=== PATIENT | male | born 1945 | race Caucasian/White ===

== ENCOUNTER 2018-05-29 13:32 | Outpatient (CLI) | payer MEDICARE | END 2018-05-29 13:33 | disposition home or self-care (01) | LOC: BICULT 13:32 | PROVIDERS: ATTEND Urology | DX: N20.0 Calculus of kidney (principal); N28.1 Cyst of kidney, acquired | CPT/HCPCS: 36415; 74018; 76770; 80048; 81003; 87086 ==

== ENCOUNTER 2018-11-25 08:11 | Outpatient (CLI) | payer MEDICARE ==
--- NOTE | 2018-11-25 11:37 | RAD ---
LUMBAR SPINE RADIOGRAPH SERIES WITH BENDING VIEWS FIVE VIEWS: INDICATIONS: Back pain. Radiculopathy. Neurogenic claudication. Spinal stenosis. FINDINGS: Mild S-shaped curvature of the lumbar spine is present. There is multilevel severe facet osteoarthri tis and multilevel moderate endplate degenerative change. At the L4-L5 level, there is a grade 1 spo ndylolisthesis of approximately 6 mm, which does exacerbate with flexion and mildly correct with exte nsion views, compatible with translational motion. There is mild retrolisthesis of L3 on L4. Incide ntal note of moderate atherosclerosis. IMPRESSION: Abnormal translational motion involving the L4-L5 level listhesis. POS: [facility]
--- NOTE | 2018-11-25 12:35 | MRI ---
MRI LUMBAR SPINE WITHOUT CONTRAST: HISTORY: Back pain. Lumbosacral pain. Bilateral leg and back pain for an extended period of time. COMPARISON: None. TECHNIQUE: MRI lumbar spine is performed without intravenous Gadolinium administration, multisequential, multipl julio imaging is performed. FINDINGS: There is appropriate T1 marrow signal intensity of the lumbar vertebrae. Mild heterogeneity likely d ue to senescent change. 3.3 mm of retrolisthesis of L2 upon L3, 3.2 mm of retrolisthesis of L3 upon L4, 3.9 mm of anterolisth esis of L4 upon L5, 3.4 mm of anterolisthesis of L5 upon S1. Vertebral body height is maintained. T here is no fracture. No significant STIR hyperintensity to suggest vertebral body edema or ligamento us injury. Appropriate signal intensity in the visualized solid organs. Symmetric signal intensity of the sumanth mynor muscles. Conus medullaris terminates at the upper aspect of L1. T12-L1: Adequate disk hydration. No significant central canal stenosis or foraminal narrowing. L1-L2: No significant posterior disk abnormality. Mild ligamentum flavum thickening and facet hyper trophy. No significant central canal stenosis. Neural foramina are patent. L2-L3: Mild loss of disk space height. Generalized disk space height. Generalized disk bulge, liga mentum flavum thickening, and facet hypertrophy result in mild central canal stenosis. Narrowing of the left subarticular zone with partial obscuration traversing the left L3 nerve root. Mild bilatera l foraminal narrowing. L3-L4: Mild loss of disk space height. Generalized disk bulge, ligamentum flavum thickening, and fa cet hypertrophy result in mild central canal stenosis. Mild right and left neural foraminal narrowin g. L4-L5: Generalized disk bulge, ligamentum flavum thickening, and facet hypertrophy result in moderat e central canal stenosis. There is narrowing of the left subarticular zone with partial obscuration of the traversing left L5 nerve root. Moderate bilateral facet hypertrophy. Bilaterally, neural for amen are patent. L5-S1: There is a central disk protrusion. Mild ligamentum flavum thickening and facet hypertrophy are present. Mild central canal stenosis. The neural foramina are patent. 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 IMPRESSION: 1. Spondylolisthesis as described above. 2. Degenerative changes of the lumbar spine as detailed above. POS: [facility]
== END 2018-11-25 08:12 | disposition home or self-care (01) ==
LOC: TBSIIMAG 08:11 → MRI 08:12
PROVIDERS: ATTEND Surgery
DX: M47.26 Other spondylosis with radiculopathy, lumbar region (principal); M48.062 Spinal stenosis, lumbar region with neurogenic claudication; M51.36 Other intervertebral disc degeneration, lumbar region; M54.5 Low back pain; M43.16 Spondylolisthesis, lumbar region; M43.17 Spondylolisthesis, lumbosacral region
CPT/HCPCS: 72120; 72148

== ENCOUNTER 2019-04-11 10:22 | Outpatient (CLI) | payer MEDICARE ==
[2019-04-11 11:31] LABS: Hemoglobin 15.3 g/dL (14.0-18.0); Mean Corpuscular Hemoglobin 29.9 pg (27.0-31.0); Mean Corpuscular Volume 90.7 fL (78.0-98.0); Platelet Count 210 thou/uL (130-400); RBC Distribution Width 12.3 % (11.5-14.5); White Blood Cell (WBC) Count 10.1 thou/uL (4.8-10.8)
[2019-04-11 11:39] LABS: PTT 33.8 SEC (22.9-36.1); Prothrombin Time 13.4 SEC (12.0-14.7)
[2019-04-11 11:55] LABS: Anion Gap 14 mmol/L (10-20); BUN (Urea Nitrogen) 27 mg/dL (8.4-25.7); Calc. Creatinine Clearance 0 mL/min (70-130); Carbon Dioxide 23 mmol/L (23-31); Chloride 106 mmol/L (98-107); Estimated GFR-MDRD 67; Glucose 119 mg/dL (83-110); Potassium 5.1 mmol/L (3.5-5.1); Sodium 138 mmol/L (136-145)
== END 2019-04-11 10:23 | disposition home or self-care (01) ==
LOC: LABBT 10:22
PROVIDERS: ATTEND Surgery
DX: Z01.818 Encounter for other preprocedural examination (principal); M48.061 Spinal stenosis, lumbar region without neurogenic claudication; M54.16 Radiculopathy, lumbar region
CPT/HCPCS: 80048; 85027; 85610; 85730; 93005; 93010

== ENCOUNTER 2019-04-17 07:06 | Day surgery (SDC) | payer MEDICARE ==
[2019-04-11 10:33] VITALS: BMI 29.7
[2019-04-17] MEDS ORDERED: ceFAZolin Sodium (SDC) 2 GM/100 ML BAG ONE (09:06)
[2019-04-17] MEDS ORDERED: Lidocaine 2% Jelly 5 ML TUBE ONE (09:44)
[2019-04-17] MEDS ORDERED: Fentanyl 100 MCG/2 ML VIAL ONE ×2 (09:44→13:43)
[2019-04-17] MEDS ORDERED: Sodium Chloride 0.9% 10 ML ONE (10:31)
[2019-04-17] MEDS ORDERED: Phenylephrine HCL 10 MG/ML VIAL ONE (11:24)
[2019-04-17] MEDS ORDERED: Fleet Enema 133 ML BOT PR PRN (13:13)
[2019-04-17] MEDS ORDERED: traMADol HCl 50 MG TAB PO PRN (13:13)
[2019-04-17] MEDS ORDERED: Acetaminophen 325 MG TAB PO PRN (13:13)
[2019-04-17] MEDS ORDERED: Bisacodyl 10 MG SUPP PR PRN (13:13)
[2019-04-17] MEDS ORDERED: Acetaminophen/Codeine 30-300mg Tablet PO PRN (13:13)
[2019-04-17] MEDS ORDERED: Ondansetron PF 4 MG/2 ML Vial IVP PRN (13:13)
[2019-04-17] MEDS ORDERED: Morphine 4 MG/ML VIAL SLOW IVP PRN (13:13)
[2019-04-17] MEDS ORDERED: Milk Of Magnesia 30 ML UDCUP PO PRN (13:13)
[2019-04-17] MEDS ORDERED: Mag-Al 1200 mg/1200 mg/30 ML UDCUP PO PRN (13:13)
[2019-04-17] MEDS ORDERED: cloNIDine 0.1 MG TAB PO PRN (13:15)
[2019-04-17] MEDS ORDERED: Promethazine HCl 25 MG/ML VIAL SLOW IVP PRN (13:25)
[2019-04-17] MEDS ORDERED: Ondansetron HCl/PF 4 MG/2 ML Vial IVP PRN (13:25)
[2019-04-17] MEDS ORDERED: Promethazine HCl 25 MG/ML VIAL IM PRN (13:25)
[2019-04-17] MEDS: tiZANidine HCl 4 MG TAB PO PRN (16:08)
[2019-04-17] MEDS: CEFAZOLIN 2 GM in Sodium Chloride 0.9% 100 ML IVPB SCH (16:08)
[2019-04-17] MEDS: HYDROcodone/Acetaminophen 7.5/325 mg Tablet PO PRN ×2 (16:09→21:16)
[2019-04-17] MEDS: Sodium Chloride 0.9% 1,000 ML IV SCH (16:12)
[2019-04-17] MEDS ORDERED: Gabapentin 300 MG CAP PO SCH (21:00)
[2019-04-17] MEDS ORDERED: Furosemide 20 MG TAB PO SCH (21:00)
[2019-04-17] MEDS ORDERED: Tamsulosin HCl 0.4 MG CAP PO SCH (21:00)
[2019-04-17] MEDS: Amlodipine 5 MG TAB PO SCH (21:17)
[2019-04-18] MEDS: CEFAZOLIN 2 GM in Sodium Chloride 0.9% 100 ML IVPB SCH (00:45)
[2019-04-18] MEDS: tiZANidine HCl 4 MG TAB PO PRN ×2 (01:22→09:35)
[2019-04-18] MEDS: Sodium Chloride 0.9% 1,000 ML IV SCH ×2 (06:35→09:42)
[2019-04-18] MEDS: HYDROcodone/Acetaminophen 7.5/325 mg Tablet PO PRN ×2 (06:49→10:59)
[2019-04-18] MEDS ORDERED: BISOPROLOL FUMARATE PO SCH (09:00)
[2019-04-18] MEDS ORDERED: HCTZ PO SCH (09:00)
[2019-04-18] MEDS ORDERED: [UNRECOGNIZED DRUG - OTHER] PO SCH (09:00)
[2019-04-18] MEDS ORDERED: Finasteride 5 MG TAB PO SCH (09:00)
[2019-04-18] MEDS ORDERED: Hydrochlorothiazide 25 MG TAB PO SCH (09:00)
[2019-04-18] MEDS ORDERED: Bisoprolol Fumarate 5 MG TAB PO SCH (09:00)
[2019-04-18] MEDS ORDERED: Atorvastatin Calcium 40 MG TAB PO SCH (09:00)
[2019-04-18] MEDS ORDERED: Ezetimibe 10 MG TAB PO SCH (09:00)
[2019-04-18] MEDS: Amlodipine 5 MG TAB PO SCH (09:34)
--- NOTE | 2019-04-18 09:34 | OP ---
DATE OF PROCEDURE: 04/17/2019 CUSTOMS APPRAISER: Taran Gibbs PA-C PREPROCEDURE DIAGNOSES: Lumbar stenosis with neurogenic claudication. POSTPROCEDURE DIAGNOSES: Lumbar stenosis with neurogenic claudication. PROCEDURES PERFORMED: 1. L2-L3, L3-L4, L4-L5, and L5-S1 laminectomies, partial facetectomies, and foraminotomies. 2. Use of operative microscope. DESCRIPTION OF PROCEDURE: After informed consent was obtained from the patient, the patient was brought to the OR. Proper patient, pause, and identification were carried out. He was placed under excellent general endotracheal anesthesia and positioned prone on the OR table. All appropriate points were padded. We identified the L2 through S1 dorsal spines and lamina and a linear gary was made over this region. This area was sterilely cleansed, prepared, and draped. Proper patient, pause, and identification were carried out. The wound was then opened with a combination of sharp, monopolar, and blunt dissection. The L2, L3, L4, L5, and S1 dorsal spines and lamina were exposed. Localization film confirmed our area of interest. We then performed an L2, L3, L4, L5, and S1 laminectomies, partial facetectomies, and foraminotomies with excellent decompression of common dural tube and nerve roots. Copious irrigation occurred throughout as I had maximizing hemostasis. The wound was then closed in anatomic layers following sprinkling of vancomycin powder. The patient then emerged from anesthesia. Job ID: [id number]
[2019-04-18 11:40] VITALS: BP 121/71; TEMP 97.7
== END 2019-04-18 13:08 | disposition home or self-care (01) ==
LOC: SDC 07:06 → SURG B 13:13 → SDC 04-18 13:08
PROVIDERS: ATTEND Surgery
PROC: 01NB0ZZ Release Lumbar Nerve, Open Approach (ICD-10-PCS; principal; 2019-04-17)
DX: M48.062 Spinal stenosis, lumbar region with neurogenic claudication (principal); M54.16 Radiculopathy, lumbar region; Z79.1 Long term (current) use of non-steroidal anti-inflammatories (NSAID); Z79.82 Long term (current) use of aspirin; Z79.899 Other long term (current) drug therapy
CPT/HCPCS: 76000; J0131; J0690; J2270; J2370; J3010; J3370; J3490

== ENCOUNTER 2019-06-11 12:42 | Outpatient (CLI) | payer MEDICARE ==
--- NOTE | 2019-06-11 13:56 | ULT ---
Exam: Bilateral renal ultrasound complete: HISTORY: Calculus of kidney COMPARISON: 05/25/2017 FINDINGS: Right kidney: 11.4 x 6.5 x 5.3 cm Left kidney: 12.0 x 6.3 x 5.4 cm Some irregular bilateral renal cortical thinning. Small echogenic focus in the right kidney cortex region. No renal hydronephrosis. No evidence for abnormal perinephric process. No solid or cystic renal mass. The urinary bladder is unremarkable and being displaced cranially by enlarged nodular prostate. IMPRESSION: No renal hydronephrosis. Irregularly minimally thinned renal cortices bilaterally. Nodular prostate gland enlargement. Small echogenic focus in the right kidney.
== END 2019-06-11 12:43 | disposition home or self-care (01) ==
LOC: BICULT 12:42
PROVIDERS: ATTEND Urology
DX: N40.1 Benign prostatic hyperplasia with lower urinary tract symptoms (principal); N20.0 Calculus of kidney; N28.89 Other specified disorders of kidney and ureter; R35.0 Frequency of micturition
CPT/HCPCS: 36415; 76770; 80048; 81001; 87086

== ENCOUNTER 2019-11-12 12:13 | Observation (INO) | payer MEDICARE ==
[2019-11-12 12:52] LABS: Bilirubin Negative (Negative); Blood, Urine 1+ (Negative); Clarity Extra Turbid (Clear); Glucose, Urine (Dipstick) Normal (Negative); Leukocyte 500 Leu/uL (Negative); Nitrite Negative (Negative); Protein, Urine (Dipstick) 30 mg/dL (Neg-Trace); Squamous Epithelial 0-3 HPF (0-3); Urobilinogen Normal mg/dL (Less than 2); WBC/HPF Greater than 50 HPF (0-3)
[2019-11-12 12:53] LABS: Bacteria/HPF 1+ HPF (None Seen)
[2019-11-12 13:12] LABS: #Eosinphils 0.3 thou/uL (0.0-0.7); #Monocytes 1.3 thou/uL (0.11-0.59); #Neutrophils 14.2 thou/uL (1.40-6.50); %Basophils 0.1 % (0.0-1.0); %Eosinophils 1.9 % (0.0-10.0); %Monocytes 7.7 % (0.0-10.0); %Neutrophils 84.3 % (42.0-75.0); Hemoglobin 11.6 g/dL (14.0-18.0); Mean Corpuscular HGB CONC 32.1 g/dL (32.0-36.0); Mean Corpuscular Hemoglobin 28.8 pg (27.0-31.0); Mean Corpuscular Volume 89.8 fL (78.0-98.0); Platelet Count 409 thou/uL (130-400); RBC Distribution Width 14.3 % (11.5-14.5); Red Blood Cell (RBC) Count 4.01 mill/uL (4.70-6.10); White Blood Cell (WBC) Count 16.8 thou/uL (4.8-10.8)
--- NOTE | 2019-11-12 13:14 | RAD ---
CHEST 1 VIEW: Date: 11/12/2019 INDICATION: History of lightheadedness and weakness. COMPARISON: Prior exam dated 04/13/2013. FINDINGS: There is mild cardiomegaly. No air space consolidation or pleural effusion is evident. The lungs are mildly hyperexpanded. No acute osseous abnormality is evident. IMPRESSION: Mild cardiomegaly without definite acute abnormality. POS: [facility]
[2019-11-12] MEDS ORDERED: cefTRIAXone\\ROCEPHIN 2 GM VIAL ONE (13:20)
[2019-11-12 13:33] LABS: ALT (SGPT) 62 U/L (8-55); AST (SGOT) 37 U/L (5-34); Albumin 3.3 g/dL (3.4-4.8); Alkaline Phosphatase 177 U/L (40-110); Anion Gap 17 mmol/L (10-20); BUN (Urea Nitrogen) 73 mg/dL (8.4-25.7); Bilirubin, Total 0.3 mg/dL (0.2-1.2); CK (CPK) 42 U/L (30-200); Calc. Creatinine Clearance 0 mL/min (70-130); Calcium 8.6 mg/dL (7.8-10.44); Carbon Dioxide 23 mmol/L (23-31); Chloride 104 mmol/L (98-107); Estimated GFR-MDRD 27; Globulin 3.4 g/dL (2.4-3.5); Glucose 142 mg/dL (83-110); Lipase 32 U/L (8-78); Potassium 5.5 mmol/L (3.5-5.1); Protein, Total 6.7 g/dL (5.8-8.1); Sodium 138 mmol/L (136-145)
[2019-11-12] MEDS ORDERED: Iopamidol-370 76% 500 ML 1 ML ONE (13:35)
--- NOTE | 2019-11-12 14:20 | CT ---
CT BRAIN WITHOUT CONTRAST: HISTORY:Altered mental status COMPARISON:04/13/2013 FINDINGS: There are foci of decreased attenuation in the periventricular white matter, consistent with chronic small vessel ischemic disease. No evidence of acute infarct, hemorrhage, midline shift or abnormal extra-axial fluid collections is seen. The ventricular size is appropriate and the basilar cisterns are patent. The bony calvarium is intact. The visualized paranasal sinuses and mastoid air cells are well aerated. IMPRESSION: No CT evidence of acute intracranial process.
--- NOTE | 2019-11-12 15:05 | CT ---
CT PULMONARY ANGIOGRAM WITH IV CONTRAST AND 3-D POSTPROCESSING: HISTORY:Elevated d-dimer, lightheadedness, slurred speech FINDINGS: There is good contrast opacification of the pulmonary arterial vasculature without filling defects to suggest pulmonary embolism. The thoracic aorta is without aneurysm. Vascular calcifications are present. No pleural or pericardial effusions are seen. No pneumothoraces, focal areas of consolidation or lung nodules are noted. There are few scattered ca lcified pleural plaques There are degenerative changes in the spine. IMPRESSION: No CT evidence of pulmonary embolism.
[2019-11-12] MEDS ORDERED: Aspirin Chewable 81 MG TAB ONE (17:42)
[2019-11-12] MEDS ORDERED: Acetaminophen 325 MG TAB PO PRN (18:07)
[2019-11-12] MEDS ORDERED: Acetaminophen 650 MG Suppository PR PRN (18:07)
--- NOTE | 2019-11-12 18:16 | ULT ---
Bilateral renal ultrasound CLINICAL INDICATION: Increasing creatinine. Red blood cells in urine. COMPARISON: 06/11/2019 FINDINGS: Right kidney: Lobulated appearance of the right kidney is present without renal cortical thinning, hy dronephrosis, renal mass, or renal calculus seen.The right kidney measures 12.7 cm x 6 cm. Left kidney: Tiny 6 mm echogenic focus is seen in the cortex of the mid left kidney which does not de monstrate posterior shadowing to suggest a calculus. This may represent a prominent vessel. This was not seen on prior renal ultrasound 06/11/2019. Lobulated appearance of the left kidney is present but to a lesser extent compared to the right. No obvious renal mass, hydronephrosis, or perinephric fluid collection is visualized.The left kidney measures 11.4 cm x 6.4 cm. Urinary bladder: Normal appearance. Bilateral ureteral jets are visualized. Urinary bladder volume is 508.2 mL. Post void image of the urinary bladder was not performed. IMPRESSION: 1. No evidence of hydronephrosis bilaterally. There is normal renal cortical thinning appreciated. 2. Approximately 6 mm echogenic focus midportion cortex left kidney which does not demonstrate shadow ing. This probably represents a prominent vessel as opposed to a cortically based calcification.
--- NOTE | 2019-11-12 18:23 | PDOC.HHP ---
Hospitalist HPI - History of Present Illness Hand weakness History of Present Illness: Patient presents with complaints of weakness and uncontrollable movement of his hands for the last 3 weeks. He saw his PCP 1-2 weeks ago and was told he had fluid behind his right ear. Was referred to ENT and given a steroid injection. Patient states he has had increasing general fatigue and weakness as well. There have been times when he falls asleep suddenly. Reports significant sweating. Denies any chest pain or sob. No cough or hemoptysis. No headaches or dizziness but has had lower back pain that he attributes to his chronic back pain and recent surgery. Denies any lower extremity numbness or weakness. No vision changes. ED Course: Labs notable for WCC 16.8, Hgb 11.6, Platelets 409 lactic acid 1.1, K+ 5.5 BUN 73, Creat 2.36, GFR 27 Alk phos 177, AST 37, ALT 62, Ammonia 16 BNP 152.2, trop negative. Flu negative. UA: Extra turbid urine. Leukocyte 500, Protein 30, Blood 1+, RBC 11-20 Greater >50, Bacterial 1+ CTA done due to elevated d-dimer(3.19), no evidence of PE. CT Brain done and negative for acute intracranial process. CXR: mild cardiomegaly. Hospitalist History - Past Medical History Cardiac: reports: HTN, Hyperlipidemia Musculoskeletal: reports: Chronic low back pain Other Medical History: ALLERGIES: No known drug allergies. CURRENT MEDICATIONS: bisoprolol fumarate SunNov 12, 2019 12:44 SAMI Starr Kelsey tablet : Strength - 10 mg : ORAL Patient Dose: 1 tab(s) once a day. amLODIPine SunNov 12, 2019 12:44 SAMI Starr Kelsey tablet : Strength - 5 mg : ORAL Patient Dose: 2 tab(s) once a day. quinapril-hydrochlorothiazide SunNov 12, 2019 12:44 SAMI Starr Kelsey tablet : Strength - 20 mg-12.5 mg : ORAL Patient Dose: See Notes."40 MG ONCE DAILY IN EVENING". meloxicam SunNov 12, 2019 12:45 SAMI Starr Kelsey tablet : Strength - 15 mg : ORAL Patient Dose: 1 tab(s) once a day. aspirin oral SunNov 12, 2019 12:47 SAMI Starr Kelsey TABLET : Strength - 81 mg : ORAL Patient Dose: 1 tab(s) once a day. atorvastatin SunNov 12, 2019 12:47 SAMI Starr Kelsey TABLET : Strength - 20 mg : ORAL Patient Dose: 40 mg once a day. cloNIDine HCl SunNov 12, 2019 12:47 SAMI Starr Kelsey TABLET : Strength - 0.1 mg : ORAL Patient Dose: 1 tab(s) See Notes.PRN FOR SBP >180. furosemide oral SunNov 12, 2019 12:47 SAMI Starr Kelsey TABLET : Strength - 40 mg : ORAL Patient Dose: 20 mg once a day. gabapentin SunNov 12, 2019 12:47 SAMI Starr Kelsey CAPSULE : Strength - 300 mg : ORAL Patient Dose: 600 mg See Notes.2, 600 MG TABS, BID. omeprazole SunNov 12, 2019 12:47 SAMI Starr Kelsey CAPSULE,DELAYED RELEASE (ENTERIC COATED) : Strength - 40 mg : ORAL Patient Dose: 20 mg once a day. tamsulosin SunNov 12, 2019 12:47 SAMI Starr Kelsey CAPSULE, EXT RELEASE 24 HR : Strength - 0.4 mg : ORAL Patient Dose: 1 cap(s) once a day. finasteride SunNov 12, 2019 12:48 SAMI Starr Kelsey tablet : Strength - 5 mg : ORAL Patient Dose: 1 tab(s) once a day. tiZANidine SunNov 12, 2019 12:48 SAMI Starr Kelsey capsule : Strength - 4 mg : ORAL Patient Dose: 1 tab(s) 3 times a day. ezetimibe SunNov 12, 2019 12:49 SAMI Starr Kelsey tablet : Strength - 10 mg : ORAL Patient Dose: 1 tab(s) once a day (in the morning). - Past Surgical History Past Surgical History: reports: Appendectomy, Cataract Removal (left eye) Other Surgical History: Right knee surgery Left hand surgery Right and left carotid artery surgery Throat cancer, requiring surgery Lower back surgery (L2-S1 laminectomies) - Family History Family History: reports: no pertinent history - Social History Smoking Status: Current every day smoker Alcohol: reports: None Drugs: reports: none Living Situation: Alone Activity level: independent ambulation - Exam General Appearance: NAD Eye: PERRL, anicteric sclera ENT: normocephalic atraumatic, no oropharyngeal lesions, moist mucosa Neck: supple, symmetric Heart: RRR Respiratory: CTAB, no wheezes, no rales, no ronchi Gastrointestinal: soft, non-tender, non-distended, normal bowel sounds Extremities: no cyanosis, no clubbing, no edema Skin: normal turgor, no lesions, no rashes Neurological: cranial nerve grossly intact, normal sensation to touch Musculoskeletal: normal tone, normal strength, no muscle wasting Psychiatric: normal affect, normal behavior, A&O x 3 Hospitalist Results - Labs Result Diagrams: 11/12/19 13:02 11/12/19 13:02 Lab results: WBC 16.8 thou/uL (4.8-10.8) H 11/12/19 13:02 Hgb 11.6 g/dL (14.0-18.0) L 11/12/19 13:02 Hct 36.0 % (42.0-52.0) L 11/12/19 13:02 MCV 89.8 fL (78.0-98.0) 11/12/19 13:02 Plt Count 409 thou/uL (130-400) H 11/12/19 13:02 Neutrophils % 84.3 % (42.0-75.0) H 11/12/19 13:02 Sodium 138 mmol/L (136-145) 11/12/19 13:02 Potassium 5.5 mmol/L (3.5-5.1) H 11/12/19 13:02 Chloride 104 mmol/L (98-107) 11/12/19 13:02 Carbon Dioxide 23 mmol/L (23-31) 11/12/19 13:02 BUN 73 mg/dL (8.4-25.7) H 11/12/19 13:02 Creatinine 2.36 mg/dL (0.7-1.3) H 11/12/19 13:02 Glucose 142 mg/dL (83-110) H 11/12/19 13:02 Lactic Acid 1.1 mmol/L (0.5-2.2) 11/12/19 13:28 Calcium 8.6 mg/dL (7.8-10.44) 11/12/19 13:02 Total Bilirubin 0.3 mg/dL (0.2-1.2) 11/12/19 13:02 AST 37 U/L (5-34) H 11/12/19 13:02 ALT 62 U/L (8-55) H 11/12/19 13:02 Alkaline Phosphatase 177 U/L (40-110) H 11/12/19 13:02 Ammonia 16 umol/L (18-72) L 11/12/19 13:02 Creatine Kinase 42 U/L (30-200) 11/12/19 13:02 Troponin I 0.020 ng/mL (< 0.028) 11/12/19 13:02 B-Natriuretic Peptide 152.2 pg/mL (0-100) H 11/12/19 13:02 Serum Total Protein 6.7 g/dL (5.8-8.1) 11/12/19 13:02 Albumin 3.3 g/dL (3.4-4.8) L 11/12/19 13:02 Lipase 32 U/L (8-78) 11/12/19 13:02 Urine Ketones Negative mg/dL (Negative) 11/12/19 12:32 Urine Blood 1+ (Negative) A 11/12/19 12:32 Urine Nitrite Negative (Negative) 11/12/19 12:32 Ur Leukocyte Esterase 500 Mary/uL (Negative) A 11/12/19 12:32 Urine RBC 11-20 HPF (0-3) A 11/12/19 12:32 Urine WBC Greater than 50 HPF (0-3) A 11/12/19 12:32 Ur Squamous Epith Cells 0-3 HPF (0-3) 11/12/19 12:32 Urine Bacteria 1+ HPF (None Seen) A 11/12/19 12:32 - EKG Interpretation EKG: EKG NSR, HR 88 - Radiology Interpretation CT scan - head Status: report reviewed by me CT scan - chest Status: report reviewed by me Hospitalist H&P A/P - Problem (1) UTI (urinary tract infection) Status: Acute (2) Weakness of both hands Code(s): R29.898 - OTH SYMPTOMS AND SIGNS INVOLVING THE MUSCULOSKELETAL SYSTEM Status: Acute (3) NICOLE (acute kidney injury) Code(s): N17.9 - ACUTE KIDNEY FAILURE, UNSPECIFIED Status: Acute (4) Hyperkalemia Code(s): E87.5 - HYPERKALEMIA Status: Acute (5) Generalized weakness Code(s): R53.1 - WEAKNESS Status: Acute (6) Mild cardiomegaly Code(s): I51.7 - CARDIOMEGALY Status: Acute (7) Hypertension Code(s): I10 - ESSENTIAL (PRIMARY) HYPERTENSION Status: Chronic (8) Hyperlipidemia Code(s): E78.5 - HYPERLIPIDEMIA, UNSPECIFIED Status: Chronic (9) History of throat cancer Code(s): Z85.819 - PRSNL HX OF MALIG NEOPLM OF UNSP SITE LIP,ORAL CAV,& PHARYNX Status: Chronic - Plan Plan: Neuro consult, MRI Brain. Carotid US, Echo. Given aspirin and 1.5 L NS IV Urine culture pending. Continue IV Abx. Flu negative. Renal ultrasound, Nephrology consult Repeat BMP and add-on Mg+ Monitor renal function. Gentle hydration. PT/OT consult. Monitor BP. Resume home meds once verified. CODE STATUS: FULL Surrogate decision maker is his Karen Cleary PCP: Dr. García
[2019-11-12 19:13] LABS: Anion Gap 14 mmol/L (10-20); BUN (Urea Nitrogen) 61 mg/dL (8.4-25.7); Calc. Creatinine Clearance 0 mL/min (70-130); Calcium 8.8 mg/dL (7.8-10.44); Carbon Dioxide 23 mmol/L (23-31); Chloride 108 mmol/L (98-107); Estimated GFR-MDRD 34; Glucose 137 mg/dL (83-110); Magnesium 2.5 mg/dL (1.6-2.6); Phosphorus 3.3 mg/dL (2.3-4.7); Potassium 4.9 mmol/L (3.5-5.1); Sodium 140 mmol/L (136-145)
[2019-11-12] MEDS: Sodium Chloride 0.9% 1,000 ML IV SCH (23:02)
[2019-11-13] MEDS ORDERED: HYDROcodone/Acetaminophen 5/325 mg Tablet PO PRN (02:18)
[2019-11-13] MEDS: HYDROcodone/Acetaminophen 5/325 mg Tablet PO PRN ×5 (02:33→21:01)
[2019-11-13 05:02] LABS: #Eosinphils 0.4 thou/uL (0.0-0.7); #Lymphocytes 1.2 thou/uL (1.20-3.40); #Monocytes 1.5 thou/uL (0.11-0.59); #Neutrophils 14.6 thou/uL (1.40-6.50); %Basophils 0.1 % (0.0-1.0); %Eosinophils 2.2 % (0.0-10.0); %Monocytes 8.6 % (0.0-10.0); %Neutrophils 82.2 % (42.0-75.0); Hemoglobin 11.8 g/dL (14.0-18.0); Mean Corpuscular HGB CONC 30.2 g/dL (32.0-36.0); Mean Corpuscular Hemoglobin 27.1 pg (27.0-31.0); Mean Corpuscular Volume 89.6 fL (78.0-98.0); Mean Platelet Volume 7.9 fL (7.4-10.4); Platelet Count 469 thou/uL (130-400); RBC Distribution Width 14.3 % (11.5-14.5); Red Blood Cell (RBC) Count 4.38 mill/uL (4.70-6.10); White Blood Cell (WBC) Count 17.8 thou/uL (4.8-10.8)
[2019-11-13 05:36] LABS: ALT (SGPT) 58 U/L (8-55); AST (SGOT) 35 U/L (5-34); Albumin 3.1 g/dL (3.4-4.8); Alkaline Phosphatase 156 U/L (40-110); Anion Gap 12 mmol/L (10-20); BUN (Urea Nitrogen) 47 mg/dL (8.4-25.7); Bilirubin, Total 0.4 mg/dL (0.2-1.2); Calc. Creatinine Clearance 52 mL/min (70-130); Calcium 9.3 mg/dL (7.8-10.44); Carbon Dioxide 26 mmol/L (23-31); Cardiac Risk 3.1 (Less than 4.5); Chloride 108 mmol/L (98-107); Cholesterol 84 mg/dl (< 200 Desired); Estimated GFR-MDRD 39; Globulin 4.3 g/dL (2.4-3.5); Glucose 110 mg/dL (83-110); HDL Cholesterol 27 mg/dL (>60 Neg Risk); LDL Cholesterol, Calculated 43 mg/dL; Potassium 5.3 mmol/L (3.5-5.1); Protein, Total 7.4 g/dL (5.8-8.1); Sodium 141 mmol/L (136-145); Triglycerides 69 mg/dL (Less than 150)
[2019-11-13] MEDS ORDERED: Lorazepam 2 MG/ML VIAL SLOW IVP SCH (07:00)
[2019-11-13] MEDS ORDERED: Aspirin 81 mg Enteric Coated Tablet PO SCH (09:00)
[2019-11-13] MEDS ORDERED: cloNIDine 0.1 MG TAB PO PRN (09:07)
--- NOTE | 2019-11-13 09:17 | ULT ---
CAROTID ARTERIAL DOPPLER ULTRASOUND: DATE: 11/13/2019. COMPARISON: None. HISTORY: Altered mental status with lightheadedness, assess for carotid artery stenosis. TECHNIQUE: Multiplanar grayscale sonographic imaging of the arterial structures of the neck obtained with color flow/spectral analysis. FINDINGS: Scattered areas of eccentric plaque noted within the mid and distal common carotid artery bilaterally as well as in the proximal external carotid artery bilaterally. Antegrade blood flow and normal arterial waveforms are documented within the carotid and vertebral sy stem bilaterally. VESSEL PSV(CM/2) Right CCA 161 Right ICA 176 Right ECA 312 Left CCA 168 Left ICA 118 Left ECA 183 IC/CC ratio is 1.1 on the right and 0.7 on the left. IMPRESSION: 1. Elevated velocities are noted within the right internal carotid artery and the bilateral common c arotid arteries. Findings suggest a moderate degree of stenosis (50-69%). 2. Further assessment via CT angiogram of the neck is thus advised. Transcribed Date/Time: 11/13/2019 9:26 AM
[2019-11-13] MEDS ORDERED: TYLENOL WITH CODEINE PO PRN (10:45)
[2019-11-13] MEDS ORDERED: Acetaminophen/Codeine 30-300mg Tablet PO PRN (11:05)
[2019-11-13] MEDS ORDERED: tiZANidine HCl 4 MG TAB PO PRN (11:06)
[2019-11-13] MEDS ORDERED: Gabapentin 300 MG CAP PO SCH ×4 (11:15→21:00)
[2019-11-13] MEDS ORDERED: Ezetimibe 10 MG TAB PO SCH (11:15)
--- NOTE | 2019-11-13 11:37 | MRI ---
MRI BRAIN NONCONTRAST: DATE: 11/13/2019 HISTORY: 74-year-old male with: Bilateral hand weakness, uncontrolled. FINDINGS: The ventricles are normal in size and configuration. There is no restricted diffusion, midline shift or any other mass effect, recent intraaxial hemorrhage, or extraaxial fluid collection. There are m ild T2-hyperintensities in the cerebral white matter consistent with mild chronic ischemic white johanna er changes due to mild microvascular atherosclerosis. IMPRESSION: 1. Mild chronic ischemic white matter changes. 2. Otherwise negative. jn[] POS: [facility]
[2019-11-13] MEDS ORDERED: Amlodipine 5 MG TAB PO SCH ×2 (12:45→21:00)
[2019-11-13] MEDS ORDERED: cefTRIAXone\\ROCEPHIN 2 GM in Sodium Chloride 0.9% 100 ML IVPB SCH (14:00)
[2019-11-13] MEDS ORDERED: tiZANidine HCl 4 MG TAB PO SCH (15:00)
[2019-11-13] MEDS: tiZANidine HCl 4 MG TAB PO SCH ×2 (17:00→21:02)
[2019-11-13] MEDS ORDERED: Atorvastatin Calcium 40 MG TAB PO SCH (21:00)
[2019-11-13] MEDS ORDERED: APAP PO SCH (21:00)
[2019-11-13] MEDS ORDERED: CODEINE PO SCH (21:00)
[2019-11-13] MEDS ORDERED: Tamsulosin HCl 0.4 MG CAP PO SCH (21:00)
[2019-11-13] MEDS ORDERED: Saccharomyces boulardii 250 MG CAP PO SCH (21:00)
[2019-11-13] MEDS: Ubidecarenone 50 MG CAP PO SCH (21:01)
[2019-11-13] MEDS: Amlodipine 5 MG TAB PO SCH (21:02)
[2019-11-13] MEDS: Sodium Chloride 0.9% 1,000 ML IV SCH (21:03)
[2019-11-14] MEDS: HYDROcodone/Acetaminophen 5/325 mg Tablet PO PRN ×3 (01:07→09:44)
[2019-11-14 05:00] LABS: #Eosinphils 0.4 thou/uL (0.0-0.7); #Lymphocytes 1.3 thou/uL (1.20-3.40); #Monocytes 1.3 thou/uL (0.11-0.59); #Neutrophils 14.6 thou/uL (1.40-6.50); %Eosinophils 2.4 % (0.0-10.0); %Lymphocytes 7.1 % (21.0-51.0); %Monocytes 7.4 % (0.0-10.0); Hemoglobin 11.3 g/dL (14.0-18.0); Mean Corpuscular HGB CONC 31.9 g/dL (32.0-36.0); Mean Corpuscular Hemoglobin 28.7 pg (27.0-31.0); Mean Corpuscular Volume 89.8 fL (78.0-98.0); Mean Platelet Volume 7.5 fL (7.4-10.4); Platelet Count 421 thou/uL (130-400); RBC Distribution Width 14.2 % (11.5-14.5); Red Blood Cell (RBC) Count 3.94 mill/uL (4.70-6.10); White Blood Cell (WBC) Count 17.6 thou/uL (4.8-10.8)
[2019-11-14 05:19] LABS: ALT (SGPT) 49 U/L (8-55); AST (SGOT) 29 U/L (5-34); Albumin 2.9 g/dL (3.4-4.8); Alkaline Phosphatase 136 U/L (40-110); Anion Gap 12 mmol/L (10-20); BUN (Urea Nitrogen) 28 mg/dL (8.4-25.7); Bilirubin, Total 0.3 mg/dL (0.2-1.2); Calc. Creatinine Clearance 58 mL/min (70-130); Calcium 8.7 mg/dL (7.8-10.44); Carbon Dioxide 23 mmol/L (23-31); Chloride 110 mmol/L (98-107); Estimated GFR-MDRD 44; Globulin 3.8 g/dL (2.4-3.5); Glucose 116 mg/dL (83-110); Potassium 4.5 mmol/L (3.5-5.1); Protein, Total 6.7 g/dL (5.8-8.1); Sodium 140 mmol/L (136-145)
[2019-11-14 07:39] VITALS: BMI 28.0
--- NOTE | 2019-11-14 07:40 | PDOC.HOSPP ---
- Subjective Encounter Date: 11/13/19 Encounter Time: 11:30 Subjective: Patient seen and examined for AMS. No new focal deficits. Mentation improving. No CP/palpitations. No new complaints. No overnight events - Objective Vital Signs & Weight: Vital Signs (12 hours) Temp Pulse Resp BP BP Pulse Ox 11/14/19 04:00 98.2 F 99 18 143/71 H 95 11/14/19 00:00 98 F 95 20 140/73 91 L 11/13/19 21:02 90 149/70 H 11/13/19 20:00 98.1 F 90 16 149/70 H 92 L Weight Admit Weight 218 lb Weight 212 lb 11.2 oz I&O: 11/13/19 11/14/19 11/15/19 06:59 06:59 06:59 Intake Total 780 3397 Balance 780 3397 Result Diagrams: 11/14/19 04:29 11/14/19 04:29 Radiology Reviewed by me: Yes (MRI - No acute CVA) EKG Reviewed by me: Yes (Tele SR) Hospitalist ROS - Review of Systems Respiratory: denies: cough, dry, shortness of breath, hemoptysis, SOB with excertion, pleuritic pain, sputum, wheezing, other Cardiovascular: denies: chest pain, palpitations, orthopnea, paroxysmal noc. dyspnea, edema, light headedness, other Gastrointestinal: denies: nausea, vomiting, abdominal pain, diarrhea, constipation, melena, hematochezia, other - Medication Medications: Active Medications Generic Name Dose Route Start Last Admin Trade Name Freq PRN Reason Stop Dose Admin Hydrocodone Bitart/Acetaminophen 2 tab 11/13/19 02:18 11/14/19 05:17 Galt 5/325 PO 2 tab Q4H PRN Administration Severe Pain (7-10) Amlodipine Besylate 5 mg 11/13/19 21:00 11/13/19 21:02 Norvasc PO 5 mg BID YOLETTE Administration Atorvastatin Calcium 40 mg 11/13/19 21:00 11/13/19 21:02 Lipitor PO 40 mg HS YOLETTE Administration Coenzyme Q10 200 mg 11/13/19 21:00 11/13/19 21:01 Coenzyme Q10 PO 200 mg BID YOLETTE Administration Sodium Chloride 1,000 mls @ 65 mls/hr 11/12/19 18:15 11/13/19 21:03 Normal Saline 0.9% IV 1,000 mls .[id number] YOLETTE Administration Ceftriaxone Sodium 2 gm/ 100 mls @ 200 mls/hr 11/13/19 14:00 11/13/19 13:27 Sodium Chloride IVPB 100 mls 1400 YOLETTE Administration Saccharomyces Boulardii 250 mg 11/13/19 21:00 11/13/19 21:02 Florastor PO 250 mg HS YOLETTE Administration Tamsulosin HCl 0.4 mg 11/13/19 21:00 11/13/19 21:02 Flomax PO 0.4 mg HS YOLETTE Administration Tizanidine HCl 4 mg 11/13/19 15:00 11/13/19 21:02 Zanaflex PO 4 mg TID YOLETTE Administration Tizanidine HCl 4 mg 11/13/19 11:06 11/13/19 11:57 Zanaflex PO 4 mg TID PRN Administration Muscle Spasm - Exam General Appearance: NAD Heart: RRR, no gallops, no rubs Respiratory: no wheezes, no rales, no ronchi, normal chest expansion Gastrointestinal: soft, non-tender, non-distended, normal bowel sounds Extremities: no cyanosis, no clubbing Neurological: no new deficit Psychiatric: normal affect, A&O x 3 Hosp A/P - Plan DVT proph w/SCDs Gen weakness/Toxic Metabolic encephalopathy - multifactorial NICOLE on CKD 2/Hyperkalemia UTI HTN Abn LFTs Chronic pain syndrome Abn Carotid USG - PCP to follow Chronic Anemia due to nutritional def PLAN: Change ASA Cont IVF Resume Gabapentin at renal dose Resume Amlodipine Check Postvoid residual Await Echo
[2019-11-14 07:49] VITALS: TEMP 98.5
[2019-11-14] MEDS ORDERED: Aspirin 325 mg Enteric Coated Tablet PO SCH (09:00)
[2019-11-14] MEDS ORDERED: Multivitamin W/ Minerals 1 TAB PO SCH (09:00)
[2019-11-14] MEDS ORDERED: Finasteride 5 MG TAB PO SCH (09:00)
[2019-11-14] MEDS ORDERED: Gabapentin 300 MG CAP PO SCH (09:00)
[2019-11-14] MEDS ORDERED: Aspirin 325 MG TAB PO SCH (09:00)
[2019-11-14] MEDS ORDERED: Ezetimibe 10 MG TAB PO SCH (09:00)
[2019-11-14] MEDS: tiZANidine HCl 4 MG TAB PO SCH (09:39)
[2019-11-14] MEDS: Ubidecarenone 50 MG CAP PO SCH (09:39)
[2019-11-14] MEDS: Amlodipine 5 MG TAB PO SCH (09:40)
[2019-11-14 09:49] VITALS: BP 163/80
[2019-11-14] MEDS: Sodium Chloride 0.9% 1,000 ML IV SCH (09:49)
--- NOTE | 2019-11-14 09:54 | CON ---
DATE OF CONSULTATION: 11/13/2019 CONSULTING PHYSICIAN: Janie Marrero PA-C. REASON FOR CONSULTATION: Acute kidney injury. REASON FOR ADMISSION: Hand weakness. HISTORY OF PRESENT ILLNESS: This is a 74-year-old male with a history of hypertension and hyperlipidemia, came to the hospital with weakness and was found to have acute kidney injury. He was also having dizziness. No fever or chills. No nausea, vomiting, or abdominal pain. PAST MEDICAL HISTORY: Positive for hypertension, hyperlipidemia, and chronic back pain. PAST SURGICAL HISTORY: Appendectomy, cataract surgery, knee surgery, and hand surgery. HOME MEDICATIONS: 1. Aspirin. 2. Tylenol. 3. Norvasc. 4. Bisoprolol. 5. Furosemide. 6. . 7. Meloxicam. 8. Omeprazole. 9. Tamsulosin. 10. Quinapril. ALLERGIES: NO KNOWN DRUG ALLERGIES. SOCIAL HISTORY: No smoking, alcohol, or drugs. FAMILY HISTORY: No history of kidney disease. REVIEW OF SYSTEMS: The following complete review of systems was negative, unless otherwise mentioned in the HPI or below: Constitutional: Weight loss or gain, ability to conduct usual activities. Skin: Rash, itching. Eyes: Double vision, pain. ENT/Mouth: Nose bleeding, neck stiffness, pain, tenderness. Cardiovascular: Palpitations, dyspnea on exertion, orthopnea. Respiratory: Shortness of breath, wheezing, cough, hemoptysis, fever or night sweats. Gastrointestinal: Poor appetite, abdominal pain, heartburn, nausea, vomiting, constipation, or diarrhea. Genitourinary: Urgency, frequency, dysuria, nocturia. Musculoskeletal: Pain, swelling. Neurologic/Psychiatric: Anxiety, depression. Allergy/Immunologic: Skin rash, bleeding tendency. PHYSICAL EXAMINATION: GENERAL: This is a well-built male, in no apparent distress. VITAL SIGNS: Temperature 98.6, respiratory rate 16, pulse 90, blood pressure 139/68. Musculoskeletal : No tenderness, No edema HEENT: Atraumatic normocephalic Neck: Supple Cardiovascular: S1S2 heard, Rate and rhythm regular Respiratory: Clear to auscultation Gastrointestinal: Abdomen is soft Dermatologic : No skin rash Neurologic: Alert and awake and oriented X3 No focal neurologic deficits. Moving all the extremities. Psychiatric: Mood and affect normal LABORATORY DATA: Potassium is 5.3, BUN is 47, and creatinine is 1.7. ASSESSMENT AND PLAN: 1. Acute kidney injury, most likely secondary to volume depletion, better with IV hydration. Agree with holding the nephrotoxins including angiotensin-converting enzyme inhibitor, on diuretics. 2. Edema, controlled. 3. Hypertension, stable. 4. Avoid nephrotoxins. 5. Weakness. 6. Anemia. Renal function is getting better. Continue to monitor. Avoid nephrotoxins. We will follow. Job ID: [id number] [facility]
--- NOTE | 2019-11-14 12:48 | DIS ---
DATE OF ADMISSION: 11/12/2019 DATE OF DISCHARGE: 11/14/2019 DISCHARGE DISPOSITION: Home. DISCHARGE FOLLOWUP: 1. Follow up with primary care physician, Dr. García, next week. 2. Follow up with Cardiovascular, Dr. Armond Kang, for abnormal carotid ultrasound. 3. Follow up with Dr. Henley next week for NICOLE. 4. Follow up with Primary Urology in 1 to 2 weeks. DISCHARGE PLAN: Repeat basic metabolic profile next week is recommended. Primary care physician advised to follow. DISCHARGE CONDITION: The patient was seen and examined on the day of discharge. Denies any new complaints. No chest pain, shortness of breath, palpitations, fever, chills reported. His mentation is back to baseline. DISCHARGE MEDICATIONS: 1. Omnicef 300 mg b.i.d. 2. Lasix was changed to p.r.n. as needed. 3. Quinapril was reduced to 20 mg daily from 40 mg daily. 4. Tizanidine was changed to p.r.n. from schedule. 5. Meloxicam was discontinued. All other home medications were left unchanged. DIAGNOSTIC TESTS: Potassium 5.5. BNP 152. Creatinine on admission was 2.36, at discharge was 1.54. WBC 16.8 with 84% neutrophils. Urinalysis showed greater than 50 WBCs with 1+ bacteria. Renal ultrasound was negative for obstructive uropathy. It showed approximately 6 mm echogenic focus in the midportion of the cortex of the left kidney. Primary care physician advised to follow. CT angiogram of the chest was negative for pulmonary embolism. Chest x-ray was negative. CT scan of the brain was negative. MRI of the brain was negative for acute CVA. It showed chronic ischemic white matter changes. Carotid ultrasound showed elevated velocities in the right internal carotid artery and bilateral common carotid artery suggestive of moderate stenosis. Echocardiogram showed left ventricular ejection fraction of 60% to 65% with normal left ventricular size. There was diastolic dysfunction with mild to moderate tricuspid regurgitation, mild mitral regurgitation. BRIEF HOSPITAL COURSE: The patient is a 74-year-old male with hypertension, hyperlipidemia, and chronic pain, presented to the hospital with generalized weakness, confusion along with uncontrolled movement of his hands on and off for last 3 weeks. His symptoms got worse, for which he presented to the emergency room. Please refer to the history and physical for further details. The patient was admitted to the hospital with a diagnosis of suspected CVA. He underwent extensive workup as discussed above. Pulmonary embolism and CVA were ruled out. His workup was consistent with acute kidney injury along with UTI. He was also on 600 mg gabapentin that could have contributed to his symptoms due to acute kidney injury with reduced clearance. His renal function gradually improved. The quinapril was reduced to 20 mg daily. Lasix has been changed to p.r.n. He will continue bisoprolol with HCTZ. A repeat basic metabolic profile next week is recommended, primary care physician advised to follow. He also had hyperkalemia that has resolved. FINAL DIAGNOSES: 1. Generalized weakness with toxic metabolic encephalopathy, multifactorial. 2. Acute kidney injury on chronic kidney disease stage 2. 3. Hyperkalemia. 4. E. coli urinary tract infection. 5. Hypertension. 6. Abnormal LFTs. 7. Chronic pain syndrome. 8. Abnormal carotid ultrasound. 9. Chronic anemia due to nutritional deficiency. 10. Abnormal renal ultrasound. Primary care physician advised to follow. 11. History of throat cancer. 12. Chronic pain syndrome. The patient understands the above plan of care. Job ID: [id number]
--- NOTE | 2019-11-14 20:31 | PRG ---
DATE OF SERVICE: 11/14/2019 SUBJECTIVE: Patient was seen and examined at bedside and overnight events noted. Patient denies any shortness of breath or chest pain or palpitation. No history of nausea or vomiting or diarrhea or fever or chills or cramps. OBJECTIVE: GENERAL: This is a well-built male, in no acute distress. VITAL SIGNS: Temperature 98.5. Heart rate 92. Respiratory rate . Blood pressure HEENT: Atraumatic, normocephalic. Oral mucosa is moist NECK: Supple. CARDIOVASCULAR: S1, S2 heard. Rate and rhythm regular. RESPIRATORY: Clear to auscultation. GASTROINTESTINAL: Abdomen is soft. MUSCULOSKELETAL: No tenderness. No edema. DERMATOLOGIC: No skin rash. NEUROLOGIC: Alert and awake and oriented X3. No focal neurologic deficits. Moving all the extremities. PSYCHIATRIC: Mood and affect normal. LABORATORY DATA: Potassium 4.5, BUN is 28, creatinine is 1.5. ASSESSMENT AND PLAN: 1. Acute kidney injury, getting better. 2. Chronic kidney disease stage 3. Need for close followup as outpatient. 3. Edema, controlled. 4. Hypertension. 5. Anemia. 6. Avoid nephrotoxins. Hyperkalemia is better. Follow up with the clinic in 1 to 2 weeks. Job ID: [id number]
--- NOTE | 2019-11-15 15:49 | EKG ---
Test Reason : Blood Pressure : / mmHG Vent. Rate : 088 BPM Atrial Rate : 088 BPM P-R Int : 158 ms QRS Dur : 092 ms QT Int : 338 ms P-R-T Axes : 058 026 033 degrees QTc Int : 408 ms Normal sinus rhythm Normal ECG Confirmed by ODETTE BLACKWELL, PRESTON ([id number]), website/blog editor PHYLLIS BUCKLEY ([id number]) on 11/15/2019 3:49:07 PM Referred By: Confirmed By:PRESTON PINO MD
== END 2019-11-14 11:36 | disposition home or self-care (01) ==
LOC: ERS 12:13 → 2SE 20:16
PROVIDERS: ADMIT Internal Medicine; ATTEND Internal Medicine
DX: G92 Toxic encephalopathy (principal); I12.9 Hypertensive chronic kidney disease with stage 1 through stage 4 chronic kidney disease, or unspecified chronic kidney disease; N18.9 Chronic kidney disease, unspecified; N17.9 Acute kidney failure, unspecified; N39.0 Urinary tract infection, site not specified; B96.20 Unspecified Escherichia coli [E. coli] as the cause of diseases classified elsewhere; E78.5 Hyperlipidemia, unspecified; F17.210 Nicotine dependence, cigarettes, uncomplicated; M54.5 Low back pain; I51.7 Cardiomegaly; G89.4 Chronic pain syndrome; D53.9 Nutritional anemia, unspecified; Z79.82 Long term (current) use of aspirin; Z79.899 Other long term (current) drug therapy
CPT/HCPCS: 70450; 70551; 71045; 71275; 76770; 80048; 80053 ×3; 80061; 82140; 82274; 82550; 83605; 83690; 83735; 83880; 84100; 84484; 85025 ×3; 85379; 87040; 87077; 87086; 87186; 87804 ×2; 93005; 93306; 93880; 96361 ×4; 96365; 96375; 96376; 97139 ×4; 99285; G0378 ×4; 36415; 81003; 81015; J0696; J2060; J3490; Q9967

== ENCOUNTER 2021-07-03 00:41 | Inpatient (IN) | payer MEDICARE ==
[2021-07-03 01:32] LABS: #Lymphocytes 0.9 thou/uL (1.20-3.40); #Monocytes 0.7 thou/uL (0.11-0.59); #Neutrophils 9.8 thou/uL (1.40-6.50); %Basophils 0.2 % (0.0-1.0); %Eosinophils 0.4 % (0.0-10.0); %Lymphocytes 8.1 % (21.0-51.0); %Monocytes 5.7 % (0.0-10.0); %Neutrophils 85.7 % (42.0-75.0); Hemoglobin 15.6 g/dL (14.0-18.0); Mean Corpuscular HGB CONC 33.8 g/dL (32.0-36.0); Mean Corpuscular Hemoglobin 31.4 pg (27.0-31.0); Mean Corpuscular Volume 92.9 fL (78.0-98.0); Mean Platelet Volume 8.8 fL (7.4-10.4); Platelet Count 198 thou/uL (130-400); RBC Distribution Width 12.4 % (11.5-14.5); Red Blood Cell (RBC) Count 4.97 mill/uL (4.70-6.10); White Blood Cell (WBC) Count 11.4 thou/uL (4.8-10.8)
[2021-07-03 01:55] LABS: ALT (SGPT) 26 U/L (8-55); AST (SGOT) 35 U/L (5-34); Albumin 4.6 g/dL (3.4-4.8); Alkaline Phosphatase 86 U/L (40-110); Anion Gap 17 mmol/L (10-20); BUN (Urea Nitrogen) 32 mg/dL (8.4-25.7); Bilirubin, Total 0.4 mg/dL (0.2-1.2); CK (CPK) 143 U/L (30-200); Calc. Creatinine Clearance 0 mL/min (70-130); Calcium 10.1 mg/dL (7.8-10.44); Carbon Dioxide 21 mmol/L (23-31); Chloride 108 mmol/L (98-107); Globulin 3.3 g/dL (2.4-3.5); Glucose 162 mg/dL (83-110); Lipase 58 U/L (8-78); Potassium 4.3 mmol/L (3.5-5.1); Protein, Total 7.9 g/dL (5.8-8.1); Sodium 142 mmol/L (136-145)
[2021-07-03] MEDS ORDERED: Enoxaparin Sodium 100 MG/ML SYRINGE ONE (02:07)
[2021-07-03] MEDS ORDERED: Lorazepam 2 MG/ML VIAL ONE (02:07)
[2021-07-03] MEDS ORDERED: Labetalol HCl 100 MG/20 ML VIAL ONE (02:07)
[2021-07-03 02:20] LABS: CKMB 10.1 ng/mL (0-6.6)
[2021-07-03] MEDS ORDERED: Nitroglycerin 0.4 MG TAB (25 Tab Bottle) SL PRN ×2 (03:47→08:29)
[2021-07-03 04:37] VITALS: BMI 26.9
[2021-07-03 07:54] LABS: Cardiac Risk 2.8 (Less than 4.5)
[2021-07-03 07:54] LABS: Magnesium 2.1 mg/dL (1.6-2.6)
[2021-07-03 08:05] LABS: Troponin I 3.478 ng/mL (< 0.028)
[2021-07-03] MEDS: Acetaminophen 325 MG TAB PO PRN ×2 (08:07→18:41)
[2021-07-03] MEDS ORDERED: cloNIDine 0.1 MG TAB PO PRN (08:32)
[2021-07-03] MEDS ORDERED: Furosemide 40 MG TAB PO PRN (08:32)
[2021-07-03] MEDS ORDERED: Acetaminophen/Codeine 30-300mg Tablet PO PRN (08:35)
[2021-07-03] MEDS ORDERED: tiZANidine HCl 4 MG TAB PO PRN (08:42)
[2021-07-03] MEDS ORDERED: Aspirin 325 mg Enteric Coated Tablet PO SCH (09:00)
[2021-07-03] MEDS: Aspirin 325 MG TAB PO SCH (09:24)
[2021-07-03] MEDS: Atorvastatin Calcium 40 MG TAB PO SCH (09:25)
[2021-07-03] MEDS: Multivitamin W/ Minerals 1 TAB PO SCH (09:25)
[2021-07-03] MEDS: Finasteride 5 MG TAB PO SCH (09:25)
[2021-07-03] MEDS: Ezetimibe 10 MG TAB PO SCH (09:25)
[2021-07-03] MEDS: Bisoprolol Fumarate 5 MG TAB PO SCH (09:25)
[2021-07-03] MEDS: Gabapentin 300 MG CAP PO SCH ×2 (09:26→20:03)
[2021-07-03 11:55] LABS: Critical Call Chem Troponin I RESULT DECREASING
[2021-07-03] MEDS: Communication Order-Pharmacy FS SCH (12:04)
[2021-07-03 12:15] LABS: CKMB 15.9 ng/mL (0-6.6)
[2021-07-03] MEDS ORDERED: Nitroglycerin 2% Ointment 1 INCH/1 GM Packet TOP SCH (14:00)
[2021-07-03] MEDS ORDERED: Nitroglycerin 2% Ointment 1 INCH/1 GM Packet TOP PRN (14:13)
[2021-07-03] MEDS ORDERED: ALPRAZolam 0.25 MG TAB PO PRN (14:47)
[2021-07-03] MEDS ORDERED: Enoxaparin Sodium 80 MG/0.8 ML SYRINGE SC SCH (15:00)
[2021-07-03 16:49] LABS: SARS-CoV-2 PCR by NAA Not Detected (NotDetected)
[2021-07-03] MEDS: ALPRAZolam 0.5 MG TAB PO PRN (18:41)
[2021-07-03] MEDS: Melatonin 3 MG TAB PO PRN (20:03)
[2021-07-03] MEDS: Tamsulosin HCl 0.4 MG CAP PO SCH (20:03)
[2021-07-03] MEDS ORDERED: Atorvastatin Calcium 40 MG TAB PO SCH (21:00)
[2021-07-03] MEDS ORDERED: Lisinopril 20 MG TAB PO SCH (21:00)
[2021-07-03] MEDS ORDERED: Polyethylene Glycol 3350 17 GM Packet PO SCH (21:00)
[2021-07-04] MEDS: Multivitamin W/ Minerals 1 TAB PO SCH (05:47)
[2021-07-04] MEDS: Gabapentin 300 MG CAP PO SCH ×2 (05:47→20:08)
[2021-07-04] MEDS: Bisoprolol Fumarate 5 MG TAB PO SCH (05:47)
[2021-07-04] MEDS: Finasteride 5 MG TAB PO SCH (05:47)
[2021-07-04] MEDS: Aspirin 325 MG TAB PO SCH (05:48)
[2021-07-04] MEDS: Ezetimibe 10 MG TAB PO SCH (05:48)
[2021-07-04] MEDS: Atorvastatin Calcium 40 MG TAB PO SCH (05:48)
[2021-07-04] MEDS ORDERED: Lidocaine 1% (PF) 30 ML VIAL ONE (06:40)
[2021-07-04] MEDS: ALPRAZolam 0.5 MG TAB PO PRN (06:46)
[2021-07-04 06:49] LABS: #Eosinphils 0.1 thou/uL (0.0-0.7); #Lymphocytes 1.6 thou/uL (1.20-3.40); #Monocytes 0.9 thou/uL (0.11-0.59); #Neutrophils 8.4 thou/uL (1.40-6.50); %Basophils 0.4 % (0.0-1.0); %Eosinophils 1.2 % (0.0-10.0); %Lymphocytes 14.6 % (21.0-51.0); %Monocytes 8.2 % (0.0-10.0); %Neutrophils 75.6 % (42.0-75.0); Hemoglobin 15.6 g/dL (14.0-18.0); Mean Corpuscular HGB CONC 33.1 g/dL (32.0-36.0); Mean Corpuscular Volume 93.7 fL (78.0-98.0); Mean Platelet Volume 8.8 fL (7.4-10.4); Platelet Count 197 thou/uL (130-400); RBC Distribution Width 12.8 % (11.5-14.5); Red Blood Cell (RBC) Count 5.04 mill/uL (4.70-6.10); White Blood Cell (WBC) Count 11.2 thou/uL (4.8-10.8)
[2021-07-04 07:10] LABS: Anion Gap 13 mmol/L (10-20); BUN (Urea Nitrogen) 19 mg/dL (8.4-25.7); Calc. Creatinine Clearance 79 mL/min (70-130); Calcium 9.8 mg/dL (7.8-10.44); Carbon Dioxide 24 mmol/L (23-31); Chloride 109 mmol/L (98-107); Glucose 110 mg/dL (83-110); Sodium 142 mmol/L (136-145)
[2021-07-04] MEDS ORDERED: Midazolam HCl 2 mg/2 ml Vial ONE (07:58)
[2021-07-04] MEDS ORDERED: Fentanyl 100 MCG/2 ML VIAL ONE (07:58)
[2021-07-04] MEDS ORDERED: Heparin 10,000 UNITS/ 10 ML VIAL ONE (08:24)
[2021-07-04] MEDS ORDERED: Nitroglycerin 2% Ointment 1 INCH/1 GM Packet ONE (08:43)
[2021-07-04] MEDS ORDERED: Heparin 25,000 units/D5W 500 ML ONE (08:46)
[2021-07-04] MEDS ORDERED: EPINEPHrine 1 MG/ML AMP ONE (09:05)
[2021-07-04] MEDS ORDERED: Dexamethasone 4 mg/ml Vial ONE (09:05)
[2021-07-04] MEDS ORDERED: Albumin 5% 500 ML ONE (09:05)
[2021-07-04] MEDS ORDERED: Bupivacaine PF 0.5% 30 ML VIAL ONE (09:05)
[2021-07-04] MEDS ORDERED: Fentanyl 250 MCG/5 ML VIAL ONE (09:32)
[2021-07-04] MEDS ORDERED: Dexmedetomidine 200 MCG/2 ML VIAL ONE (09:32)
[2021-07-04] MEDS ORDERED: Midazolam HCl 5 mg/5 ml Vial ONE (09:32)
[2021-07-04] MEDS ORDERED: ceFAZolin 2 GM/DEX 5% 100 ML BAG ONE (09:45)
[2021-07-04] MEDS ORDERED: Heparin 10,000 UNITS/1 ML VIAL 30,000 UNITS in Sodium Chloride 0.9% 1,000 ML FS SCH (09:45)
[2021-07-04] MEDS ORDERED: Glycopyrrolate 0.2 MG/ML 5 ML SYRINGE ONE (10:21)
[2021-07-04] MEDS ORDERED: Protamine Sulfate 250 MG/25 ML VIAL ONE (10:21)
[2021-07-04] MEDS ORDERED: Aminocaproic Acid 5 GM/20 ML VIAL ONE (10:21)
[2021-07-04] MEDS ORDERED: Magnesium Sulfate 1 GM/2 ML VIAL ONE (10:21)
[2021-07-04] MEDS ORDERED: Heparin 30,000 units/30 ml VIAL ONE (10:21)
[2021-07-04] MEDS ORDERED: Mannitol 12.5 GM/50 ML ONE (10:21)
[2021-07-04] MEDS ORDERED: Norepinephrine 4 MG/4 ML VIAL ONE (10:21)
[2021-07-04] MEDS ORDERED: Ondansetron PF 4 MG/2 ML Vial ONE (10:21)
[2021-07-04] MEDS ORDERED: Sodium Bicarb 50 MEQ/50 ML Abboject 8.4% SYRINGE ONE (10:21)
[2021-07-04] MEDS ORDERED: Vecuronium 10 MG VIAL ONE ×2 (10:21)
[2021-07-04] MEDS ORDERED: Heparin 5,000 UNITS/ML VIAL ONE (10:21)
[2021-07-04] MEDS ORDERED: Papaverine 60 MG/2 ML VIAL ONE (10:21)
[2021-07-04] MEDS ORDERED: Thrombin 5000 UNITS/5 ML VIAL ONE (10:21)
[2021-07-04] MEDS ORDERED: PROPOFOL 200 MG/20 ML VIAL ONE (10:21)
[2021-07-04] MEDS ORDERED: Nitroglycerin 50 MG/250 ML BOT ONE (10:21)
[2021-07-04] MEDS ORDERED: Cardioplegic Soln 1,000 ML BAG ONE (10:21)
[2021-07-04] MEDS ORDERED: Potassium Chloride 60 MEQ/30 ML VIAL ONE (10:21)
[2021-07-04] MEDS ORDERED: Calcium Chloride 1 GM/10 ML Abboject SYRINGE ONE (10:21)
[2021-07-04] MEDS ORDERED: Lidocaine 2% PF 100 mg/5 ml Syringe ONE (10:21)
[2021-07-04] MEDS ORDERED: Dexamethasone 20 MG/5 ML VIAL ONE (10:21)
[2021-07-04] MEDS ORDERED: Lidocaine 1% PF 5 ML VIAL ONE (10:21)
[2021-07-04] MEDS ORDERED: Iopamidol 370 76% 100 ML VIAL ONE (10:37)
[2021-07-04] MEDS ORDERED: PHENYLEPHRINE-NS 100 MCG/ML 10 ML SYRINGE ONE ×2 (11:12→11:13)
[2021-07-04] MEDS ORDERED: Insulin Regular 300 UNITS/3 ML VIAL ONE (11:21)
[2021-07-04] MEDS ORDERED: Mag-Al 1200 mg/1200 mg/30 ML UDCUP PO PRN (13:19)
[2021-07-04] MEDS ORDERED: Ondansetron PF 4 MG/2 ML Vial IVP PRN (13:19)
[2021-07-04] MEDS ORDERED: Bisacodyl 5 MG TAB PO PRN (13:19)
[2021-07-04] MEDS ORDERED: niCARdipine 25 MG in Sodium Chloride 0.9% 250 ML 250 ML IVPB PRN (13:19)
[2021-07-04] MEDS ORDERED: HYDROcodone/Acetaminophen 5/325 mg Tablet PO PRN ×2 (13:19)
[2021-07-04] MEDS ORDERED: Nitroglycerin 50 MG/250 ML BOT 250 ML IVPB PRN (13:19)
[2021-07-04] MEDS ORDERED: traMADol HCl 50 MG TAB PO PRN ×2 (13:19)
[2021-07-04] MEDS ORDERED: hydrALAZINE 20 MG/ML VIAL SLOW IVP PRN (13:19)
[2021-07-04] MEDS ORDERED: Potassium Chloride 20 MEQ/100 ML PREMIX BAG IVPB PRN (13:19)
[2021-07-04] MEDS ORDERED: D5 1/2 NS w/20 mEq KCL 1,000 ML IV SCH (13:19)
[2021-07-04] MEDS ORDERED: Norepinephrine 8 MG/0.9% NS 250 ML IVPB PRN (13:19)
[2021-07-04] MEDS ORDERED: Hetastarch 6% 500 ML 500 ML IVPB PRN (13:19)
[2021-07-04] MEDS ORDERED: Magnesium 2 GM/50 ML 2 GM in Premix Bag 1 BAG IVPB SCH (13:19)
[2021-07-04] MEDS ORDERED: Fentanyl 100 MCG/2 ML VIAL SLOW IVP PRN ×2 (13:19)
[2021-07-04] MEDS ORDERED: Bisacodyl 10 MG SUPP PR PRN (13:19)
[2021-07-04] MEDS ORDERED: Guaifenesin DM 100-10/5 ML UDCUP PO PRN (13:19)
[2021-07-04] MEDS ORDERED: Morphine 2 MG/ML VIAL SLOW IVP PRN (13:19)
[2021-07-04] MEDS ORDERED: Dextrose 5% in Water 1,000 ML IV PRN (13:45)
[2021-07-04] MEDS ORDERED: Dextrose 50% Abboject 50 ML SYRINGE SLOW IVP PRN (13:45)
[2021-07-04 13:56] LABS: Hemoglobin 12.6 g/dL (14.0-18.0); Mean Corpuscular Hemoglobin 32.1 pg (27.0-31.0); Mean Corpuscular Volume 94.5 fL (78.0-98.0); Mean Platelet Volume 8.7 fL (7.4-10.4); Platelet Count 152 thou/uL (130-400); RBC Distribution Width 12.8 % (11.5-14.5); Red Blood Cell (RBC) Count 3.93 mill/uL (4.70-6.10); White Blood Cell (WBC) Count 20.9 thou/uL (4.8-10.8)
[2021-07-04 14:08] LABS: INR-International Normal Ratio 1.3; Prothrombin Time 15.9 sec (12.0-14.7)
[2021-07-04] MEDS: Insulin Regular 300 UNITS/3 ML VIAL SC PRN ×4 (14:15→23:47)
[2021-07-04 14:21] LABS: Anion Gap 11 mmol/L (10-20); BUN (Urea Nitrogen) 15 mg/dL (8.4-25.7); Calc. Creatinine Clearance 93 mL/min (70-130); Calcium 8.2 mg/dL (7.8-10.44); Carbon Dioxide 20 mmol/L (23-31); Chloride 114 mmol/L (98-107); Glucose 170 mg/dL (83-110); Potassium 4.1 mmol/L (3.5-5.1); Sodium 141 mmol/L (136-145)
[2021-07-04 14:23] LABS: Band 36 % (5-11); Eosinophils 4 % (0-10); Lymphocytes 3 % (21-51); MDiff Complete? YES; Monocytes 9 % (0-10); Neutrophil 47 % (42-75); Platelet Morphology Comment Appears Adequate; RBC Morphology Normal; Reactive Lymphocytes 1 % (0-10)
[2021-07-04] MEDS: Ketorolac Tromethamine 30 MG/ML VIAL IVP SCH ×2 (17:17→23:23)
[2021-07-04] MEDS ORDERED: ceFAZolin Sodium/D5W 2 GM in Premix Bag 1 BAG IVPB SCH (18:00)
[2021-07-04] MEDS ORDERED: CEFAZOLIN 2 GM in Sodium Chloride 0.9% 100 ML IVPB SCH (18:00)
[2021-07-04] MEDS: CEFAZOLIN 2 GM, Admixture Fee 1 EACH in Sodium Chloride 0.9% 100 ML IVPB SCH (18:03)
[2021-07-04 19:05] LABS: Hemoglobin 11.7 g/dL (14.0-18.0)
[2021-07-04] MEDS: Tamsulosin HCl 0.4 MG CAP PO SCH (20:09)
[2021-07-04] MEDS: Communication Order-Pharmacy FS SCH (20:14)
[2021-07-04] MEDS ORDERED: Famotidine/PF 20 mg/2ml Vial SLOW IVP SCH (21:00)
[2021-07-04] MEDS: Melatonin 3 MG TAB PO PRN (23:24)
[2021-07-05] MEDS: CEFAZOLIN 2 GM, Admixture Fee 1 EACH in Sodium Chloride 0.9% 100 ML IVPB SCH ×2 (01:14→10:49)
[2021-07-05 04:14] LABS: #Lymphocytes 0.7 thou/uL (1.20-3.40); #Monocytes 1.1 thou/uL (0.11-0.59); #Neutrophils 10.7 thou/uL (1.40-6.50); %Basophils 0.2 % (0.0-1.0); %Eosinophils 0.2 % (0.0-10.0); %Lymphocytes 5.5 % (21.0-51.0); %Monocytes 8.7 % (0.0-10.0); %Neutrophils 85.4 % (42.0-75.0); Hemoglobin 8.8 g/dL (14.0-18.0); Mean Corpuscular HGB CONC 33.2 g/dL (32.0-36.0); Mean Corpuscular Hemoglobin 31.1 pg (27.0-31.0); Mean Corpuscular Volume 93.8 fL (78.0-98.0); Platelet Count 140 thou/uL (130-400); RBC Distribution Width 12.7 % (11.5-14.5); Red Blood Cell (RBC) Count 2.83 mill/uL (4.70-6.10); White Blood Cell (WBC) Count 12.5 thou/uL (4.8-10.8)
[2021-07-05 04:26] LABS: Anion Gap 11 mmol/L (10-20); BUN (Urea Nitrogen) 22 mg/dL (8.4-25.7); Calc. Creatinine Clearance 74 mL/min (70-130); Calcium 7.8 mg/dL (7.8-10.44); Carbon Dioxide 19 mmol/L (23-31); Chloride 115 mmol/L (98-107); Glucose 132 mg/dL (83-110); Potassium 4.5 mmol/L (3.5-5.1); Sodium 140 mmol/L (136-145)
[2021-07-05] MEDS: Ketorolac Tromethamine 30 MG/ML VIAL IVP SCH ×4 (05:26→23:02)
[2021-07-05] MEDS ORDERED: Aspirin 325 MG TAB PO SCH (09:00)
[2021-07-05] MEDS: Gabapentin 300 MG CAP PO SCH ×2 (09:41→21:09)
[2021-07-05] MEDS: Atorvastatin Calcium 40 MG TAB PO SCH (09:42)
[2021-07-05] MEDS: Finasteride 5 MG TAB PO SCH (09:42)
[2021-07-05] MEDS: Ezetimibe 10 MG TAB PO SCH (09:43)
[2021-07-05] MEDS: Magnesium 2 GM/50 ML 2 GM in Premix Bag 1 BAG IVPB SCH (09:43)
[2021-07-05] MEDS: Melatonin 3 MG TAB PO PRN (21:09)
[2021-07-05] MEDS: Tamsulosin HCl 0.4 MG CAP PO SCH (21:09)
[2021-07-05] MEDS: Acetaminophen 325 MG TAB PO PRN (23:02)
[2021-07-06 04:52] LABS: #Eosinphils 0.1 thou/uL (0.0-0.7); #Lymphocytes 1.3 thou/uL (1.20-3.40); #Monocytes 1.6 thou/uL (0.11-0.59); #Neutrophils 11.1 thou/uL (1.40-6.50); %Basophils 0.1 % (0.0-1.0); %Eosinophils 0.4 % (0.0-10.0); %Lymphocytes 9.4 % (21.0-51.0); %Monocytes 11.2 % (0.0-10.0); %Neutrophils 78.9 % (42.0-75.0); Hemoglobin 9.2 g/dL (14.0-18.0); Mean Corpuscular HGB CONC 33.9 g/dL (32.0-36.0); Mean Corpuscular Hemoglobin 32.3 pg (27.0-31.0); Mean Corpuscular Volume 95.2 fL (78.0-98.0); Mean Platelet Volume 9.3 fL (7.4-10.4); Platelet Count 133 thou/uL (130-400); RBC Distribution Width 12.8 % (11.5-14.5); Red Blood Cell (RBC) Count 2.83 mill/uL (4.70-6.10)
[2021-07-06 05:13] LABS: Anion Gap 11 mmol/L (10-20); BUN (Urea Nitrogen) 31 mg/dL (8.4-25.7); Calc. Creatinine Clearance 74 mL/min (70-130); Calcium 8.7 mg/dL (7.8-10.44); Carbon Dioxide 22 mmol/L (23-31); Chloride 112 mmol/L (98-107); Glucose 112 mg/dL (83-110); Sodium 141 mmol/L (136-145)
[2021-07-06] MEDS: Ketorolac Tromethamine 30 MG/ML VIAL IVP SCH ×4 (06:00→23:36)
[2021-07-06] MEDS ORDERED: Zolpidem Tartrate 5 MG TAB PO PRN (07:14)
[2021-07-06] MEDS ORDERED: diphenhydrAMINE 25 MG CAP PO PRN (07:14)
[2021-07-06] MEDS ORDERED: Nitroglycerin 0.4 MG TAB (25 Tab Bottle) SL PRN (07:14)
[2021-07-06] MEDS ORDERED: Milk Of Magnesia 30 ML UDCUP PO PRN (07:14)
[2021-07-06] MEDS ORDERED: Mineral Oil ENEMA PR PRN (07:14)
[2021-07-06] MEDS ORDERED: Polyethylene Glycol 3350 17 GM Packet PO PRN (08:34)
[2021-07-06] MEDS: Gabapentin 300 MG CAP PO SCH ×2 (09:38→20:23)
[2021-07-06] MEDS: Finasteride 5 MG TAB PO SCH (09:39)
[2021-07-06] MEDS: Ezetimibe 10 MG TAB PO SCH (09:40)
[2021-07-06] MEDS: Aspirin 325 mg Enteric Coated Tablet PO SCH (09:40)
[2021-07-06] MEDS: Atorvastatin Calcium 40 MG TAB PO SCH (09:40)
[2021-07-06] MEDS: Magnesium 2 GM/50 ML 2 GM in Premix Bag 1 BAG IVPB SCH (09:41)
[2021-07-06] MEDS: Docusate 100 MG CAP PO SCH ×2 (09:41→20:20)
[2021-07-06] MEDS ORDERED: Bisoprolol Fumarate/HCTZ 10 mg/6.25 mg Tablet PO SCH (16:15)
[2021-07-06] MEDS: Tamsulosin HCl 0.4 MG CAP PO SCH (20:25)
[2021-07-06] MEDS ORDERED: Melatonin 3 MG TAB PO PRN (21:00)
[2021-07-06] MEDS: Acetaminophen 325 MG TAB PO PRN (23:50)
[2021-07-07] MEDS: Ketorolac Tromethamine 30 MG/ML VIAL IVP SCH ×2 (05:25→11:25)
[2021-07-07] MEDS ORDERED: Lisinopril 20 MG TAB PO SCH (06:00)
[2021-07-07] MEDS ORDERED: Bisoprolol Fumarate/HCTZ 10 mg/6.25 mg Tablet PO SCH (09:00)
[2021-07-07] MEDS: Docusate 100 MG CAP PO SCH (09:25)
[2021-07-07] MEDS: Atorvastatin Calcium 40 MG TAB PO SCH (09:25)
[2021-07-07] MEDS: Finasteride 5 MG TAB PO SCH (09:25)
[2021-07-07] MEDS: Ezetimibe 10 MG TAB PO SCH (09:25)
[2021-07-07] MEDS: Aspirin 325 mg Enteric Coated Tablet PO SCH (09:25)
[2021-07-07] MEDS: Gabapentin 300 MG CAP PO SCH (09:26)
[2021-07-07 11:23] VITALS: BP 128/60; TEMP 98.6
[2021-07-12 13:16] LABS: Actual Bicarbonate (HCO3a) 23.2 mEq/L (22-28); Analyzer IN Cardio OR; Base Excess (BEa) -1.1 mEq/L (-2.0 to +3.0); CO2 Tension 37.5 mmHg (35.0-45.0); Calcium, Ionized (arterial) 1.09 mmol/L (1.12-1.30); Hemoglobin (Hb) 10.9 g/dL (14.0-18.0); O2 Tension (PaO2), arterial 349.8 mmHg (> 70.0); Potassium - ABG Lab 3.78 mmol/L (3.70-5.30); pH, Arterial 7.41 (7.35-7.45)
[2021-07-12 13:17] LABS: Analyzer IN Cardio OR; CO2 Tension 41.7 mmHg (35.0-45.0); Calcium, Ionized (arterial) 0.91 mmol/L (1.12-1.30); Hemoglobin (Hb) 11.5 g/dL (14.0-18.0); O2 Tension (PaO2), arterial 418.2 mmHg (> 70.0); Potassium - ABG Lab 4.02 mmol/L (3.70-5.30)
[2021-07-12 13:18] LABS: Actual Bicarbonate (HCO3a) 22.7 mEq/L (22-28); Analyzer IN Cardio OR; Base Excess (BEa) -1.3 mEq/L (-2.0 to +3.0); Calcium, Ionized (arterial) 1.18 mmol/L (1.12-1.30); Carboxyhemoglobin (COHb) 0.5 gm% (0.0-3.0); Hemoglobin (Hb) 14.2 g/dL (14.0-18.0); Potassium - ABG Lab 3.96 mmol/L (3.70-5.30); pH, Arterial 7.42 (7.35-7.45)
[2021-07-12 13:18] LABS: Actual Bicarbonate (HCO3a) 22.5 mEq/L (22-28); Analyzer IN Cardio OR; Base Excess (BEa) -1.8 mEq/L (-2.0 to +3.0); CO2 Tension 36.4 mmHg (35.0-45.0); Calcium, Ionized (arterial) 1.21 mmol/L (1.12-1.30); Carboxyhemoglobin (COHb) 0.3 gm% (0.0-3.0); Hemoglobin (Hb) 9.9 g/dL (14.0-18.0); O2 Tension (PaO2), arterial 432.6 mmHg (> 70.0); Potassium - ABG Lab 4.02 mmol/L (3.70-5.30); pH, Arterial 7.41 (7.35-7.45)
[2021-07-12 13:19] LABS: Actual Bicarbonate (HCO3a) 22.8 mEq/L (22-28); Analyzer IN Cardio OR; Base Excess (BEa) -2.7 mEq/L (-2.0 to +3.0); Calcium, Ionized (arterial) 1.18 mmol/L (1.12-1.30); Carboxyhemoglobin (COHb) 0.8 gm% (0.0-3.0); Hemoglobin (Hb) 13.9 g/dL (14.0-18.0); O2 Tension (PaO2), arterial 400.1 mmHg (> 70.0); Puncture Site Arterial Line; pH, Arterial 7.35 (7.35-7.45)
[2021-07-12 13:19] LABS: Puncture Site Arterial Line
[2021-07-12 13:20] LABS: Puncture Site Arterial Line
[2021-07-12 13:21] LABS: Puncture Site Arterial Line
[2021-07-12 13:21] LABS: Puncture Site Arterial Line
== END 2021-07-07 13:35 | disposition home or self-care (01) | DRG 234 ==
LOC: ERS 00:41 → 2SW 02:34 → OBSVTOIN 08:28 → CCU 07-04 11:22 → 2NO 07-06 12:29
PROVIDERS: ADMIT Student in an Organized Health Care Education/Training Program; ATTEND Internal Medicine
PROC: 02100Z9 Bypass Coronary Artery, One Artery from Left Internal Mammary, Open Approach (ICD-10-PCS; principal; 2021-07-04)
PROC: 4A023N7 Measurement of Cardiac Sampling and Pressure, Left Heart, Percutaneous Approach (ICD-10-PCS; 2021-07-04)
PROC: 021109W Bypass Coronary Artery, Two Arteries from Aorta with Autologous Venous Tissue, Open Approach (ICD-10-PCS; 2021-07-04)
PROC: 06BQ4ZZ Excision of Left Saphenous Vein, Percutaneous Endoscopic Approach (ICD-10-PCS; 2021-07-04)
PROC: 5A1221Z Performance of Cardiac Output, Continuous (ICD-10-PCS; 2021-07-04)
PROC: B2111ZZ Fluoroscopy of Multiple Coronary Arteries using Low Osmolar Contrast (ICD-10-PCS; 2021-07-04)
DX: I21.4 Non-ST elevation (NSTEMI) myocardial infarction (principal); N40.0 Benign prostatic hyperplasia without lower urinary tract symptoms; E78.00 Pure hypercholesterolemia, unspecified; I25.10 Atherosclerotic heart disease of native coronary artery without angina pectoris; I12.9 Hypertensive chronic kidney disease with stage 1 through stage 4 chronic kidney disease, or unspecified chronic kidney disease; G89.4 Chronic pain syndrome; N18.2 Chronic kidney disease, stage 2 (mild); Z20.822 Contact with and (suspected) exposure to COVID-19; Z79.82 Long term (current) use of aspirin; Z79.899 Other long term (current) drug therapy; Z90.49 Acquired absence of other specified parts of digestive tract; Z98.890 Other specified postprocedural states; Z87.891 Personal history of nicotine dependence
CPT/HCPCS: 36415; 36416; 36430; 71045; 80048; 80053; 80061; 82550; 82553; 82805; 83690; 83735; 83880; 84484; 85025; 85347; 85610; 85730; 86850; 86900; 86901; 93005; 93010; 93306; 93459; 93798; 94760; 96372; 96374; 96375; 97139; 99152; 99153; G0378; J0171; J0360; J0690; J1100; J1644; J1650; J1815; J1885; J2001; J2060; J2150; J2250; J2405; J2440; J2704; J2720; J3010; J3370; J3475; J3480; J3490; P9045; Q9967; S0017; S0020; S0028; U0003; U0005

== ENCOUNTER 2021-10-28 11:48 | Outpatient (CLI) | payer MEDICARE ==
[2021-10-28 12:34] LABS: Hemoglobin 12.9 g/dL (13.5-17.5); Mean Corpuscular Hemoglobin 24.4 pg (27.0-33.0); Mean Corpuscular Volume 81.3 fl (81.2-95.1); Mean Platelet Volume 10.7 fl (7.4-10.4); Platelet Count 287 10x3/uL (150-450); RBC Distribution Width 18.1 % (11.5-14.5); Red Blood Cell (RBC) Count 5.29 10x6/uL (4.32-5.72)
[2021-10-28 12:57] LABS: Prothrombin Time 10.9 sec (9.5-12.1)
[2021-10-28 13:03] LABS: Anion Gap 14 mmol/L (10-20); BUN (Urea Nitrogen) 20 mg/dL (8.4-25.7); Calc. Creatinine Clearance 0 mL/min (70-130); Calcium 9.5 mg/dL (7.8-10.44); Carbon Dioxide 22 mmol/L (23-31); Chloride 107 mmol/L (98-107); Glucose 146 mg/dL (83-110); Potassium 4.5 mmol/L (3.5-5.1); Sodium 138 mmol/L (136-145)
[2021-10-29 00:49] LABS: SARS-CoV-2 PCR by NAA Not Detected (NotDetected)
== END 2021-10-28 11:49 | disposition home or self-care (01) ==
LOC: LABBT 11:48
PROVIDERS: ATTEND Urology
DX: Z01.812 Encounter for preprocedural laboratory examination (principal); Z12.5 Encounter for screening for malignant neoplasm of prostate; N39.0 Urinary tract infection, site not specified; N40.1 Benign prostatic hyperplasia with lower urinary tract symptoms; N20.0 Calculus of kidney; R35.0 Frequency of micturition; M54.16 Radiculopathy, lumbar region; I65.23 Occlusion and stenosis of bilateral carotid arteries; I10 Essential (primary) hypertension; Z20.822 Contact with and (suspected) exposure to COVID-19
CPT/HCPCS: 80048; 85027; 85610; 85730; U0003; U0005

== ENCOUNTER 2021-11-02 06:30 | Day surgery (SDC) | payer MEDICARE ==
[2021-10-31 10:11] VITALS: BMI 26.9
[2021-11-02] MEDS ORDERED: B & O ONE (10:18)
[2021-11-02] MEDS ORDERED: Levofloxacin 500 mg/D5W 100 ml Premix Bag ONE ×2 (10:20→10:25)
[2021-11-02] MEDS ORDERED: Meperidine HCl/PF 25 MG/ML VIAL ONE (10:24)
[2021-11-02] MEDS ORDERED: Ondansetron PF 4 MG/2 ML Vial ONE (10:32)
[2021-11-02] MEDS ORDERED: PROPOFOL 200 MG/20 ML VIAL ONE (10:32)
[2021-11-02] MEDS ORDERED: Lidocaine 1% PF 5 ML VIAL ONE (10:32)
[2021-11-02] MEDS ORDERED: Oxybutynin 5 MG TAB ONE (11:28)
[2021-11-02] MEDS ORDERED: Phenazopyridine HCl 100 MG TAB ONE (11:28)
== END 2021-11-02 13:20 | disposition home or self-care (01) ==
LOC: SDC 06:30
PROVIDERS: ATTEND Urology
PROC: 0T7D8DZ Dilation of Urethra with Intraluminal Device, Via Natural or Artificial Opening Endoscopic (ICD-10-PCS; principal; 2021-11-02)
DX: N40.1 Benign prostatic hyperplasia with lower urinary tract symptoms (principal); R39.14 Feeling of incomplete bladder emptying; N13.8 Other obstructive and reflux uropathy; R35.0 Frequency of micturition; N52.9 Male erectile dysfunction, unspecified; I10 Essential (primary) hypertension; I25.10 Atherosclerotic heart disease of native coronary artery without angina pectoris; I25.2 Old myocardial infarction; Z87.440 Personal history of urinary (tract) infections; Z87.442 Personal history of urinary calculi; Z87.891 Personal history of nicotine dependence; Z79.82 Long term (current) use of aspirin; Z79.899 Other long term (current) drug therapy; Z95.1 Presence of aortocoronary bypass graft
CPT/HCPCS: 74018; C9740; L8699; J1956; J2175; J2405; J2704

== ENCOUNTER 2024-06-12 11:45 | Outpatient (CLI) | payer MEDICARE | END 2024-06-12 11:46 | disposition home or self-care (01) | LOC: PET 11:45 | PROVIDERS: ATTEND Urology | DX: C61 Malignant neoplasm of prostate (principal) | CPT/HCPCS: 78815; A9552; A9595 ==